=== PATIENT | male | born 1965 | race Hispanic/Latino ===

== ENCOUNTER 2020-11-04 13:58 | Outpatient (CLI) | payer OTHER | END 2020-11-04 13:59 | disposition home or self-care (01) | LOC: BICRAD 13:58 | PROVIDERS: ATTEND Family Medicine | DX: M25.511 Pain in right shoulder (principal); M19.011 Primary osteoarthritis, right shoulder ==

== ENCOUNTER 2023-06-06 10:16 | Outpatient (CLI) | payer BC | END 2023-06-06 10:17 | disposition home or self-care (01) | LOC: ULT 10:16 | PROVIDERS: ATTEND Nurse Practitioner Family | DX: M79.89 Other specified soft tissue disorders (principal) | CPT/HCPCS: 76999 ==

== ENCOUNTER 2023-07-08 09:55 | Outpatient (CLI) | payer OTHER | END 2023-07-08 09:56 | disposition home or self-care (01) | LOC: BICRAD 09:55 | PROVIDERS: ATTEND Family Medicine | DX: S66.911D Strain of unspecified muscle, fascia and tendon at wrist and hand level, right hand, subsequent encounter (principal) ==